=== PATIENT | male | born 1985 | race Caucasian/White ===

== ENCOUNTER 2018-04-13 15:30 | Inpatient (IN) ==
--- NOTE | 2018-04-13 16:05 | Emergency Department Note ---
Disposition Clinical Impression: Hypoxia, Dyspnea Disposition: Still a Patient Condition: Fair Referrals: NONE,PCP [Primary Care Provider] - Forms: ED Satisfaction Letter General Adult HPI - General Chief complaint: ED Shortness of Breath/Dyspnea Stated complaint: SARAH Time Seen by Provider: 04/13/18 15:40 Source: patient Limitations: no limitations Nursing Notes Reviewed: Yes Vital Signs Reviewed: Yes - History of Present Illness Pain Scale: 0 - Related Data Home Medications Medication Instructions Recorded Confirmed No Known Home Drugs 04/13/18 04/13/18 Allergies Allergy/AdvReac Type Severity Reaction Status Date / Time No Known Allergies Allergy Verified 04/13/18 15:39 Past Medical History - Past Medical History Medical history: Reports: no medical history Psychiatric history: Reports: anxiety, panic disorder, PTSD - Social History Smoking Status: Former smoker Smokeless Tobacco Status: No Alcohol use: Reports: occasionally Drug use: Reports: none Physical Exam - General Limitations: no limitations General appearance: alert Course Vital Signs O2 Sat by Pulse Oximetry 83 04/13/18 15:40 Temperature 98.7 F 04/13/18 15:49 Pulse Rate 120 04/13/18 15:49 Respiratory Rate 18 04/13/18 16:28 Blood Pressure 176/125 04/13/18 15:49 O2 Sat by Pulse Oximetry 98 04/13/18 16:28 Oxygen Delivery Oxygen Delivery Nasal Cannula Medical Decision Making - [facility] Narrative Medical decision making narrative: 1845 hrs.: They had difficulty due to his body habitus getting an IV and blood draw also worry are working on that now and will sign him out to the evening ER physician Dr. Forte for further management disposition. - Lab Data Result diagrams: 04/13/18 18:21 Lab Results 04/13/18 Range/Units 18:21 WBC 19.2 H (4.3-11.1) K/mcL RBC 5.48 (4.19-5.50) M/mcL Hgb 15.3 (12.9-16.9) g/dL Hct 46.8 (37.5-50.1) % MCV 85.4 (83.0-100.0) fL MCH 27.9 L (28.0-33.3) pg MCHC 32.7 (31.6-35.5) g/dL RDW 13.3 (11.5-14.5) % Plt Count 269 (140-400) K/mcL MPV 12.2 (9.4-12.4) fL Immature Gran % 0.5 (0-4) % Seg Neutrophils % 89.6 % Lymphocytes % 4.5 % Monocytes % 5.1 % Eosinophils % 0.1 % Basophils % 0.2 % Neutrophils # 17.2 H (1.6-8.9) K/mcL Lymphocytes # 0.9 (0.6-4.6) K/mcL Monocytes # 1.0 (0.0-1.3) K/mcL Eosinophils # 0.0 (0.0-0.6) K/mcL Basophils # 0.0 (0.0-0.2) K/mcL Attestation Statement - Attestation Attestation: This documentation is done with the assistance of Dragon dictation. Despite efforts made to ensure accuracy, there may be inaccuracies in store stock associate or spelling and typographical errors. I examined this patient and my medical decision-making was reviewed with the Resident Physician. I agree with the documented findings, disposition and treatment plan as described except to the extent set forth below. Patient seen and evaluated by Dr. Mchugh and myself, agree with his evaluation management plan, supervise care the patient's stay. Patient comes in today with increased dyspnea special exertion. He said he does any fevers here is been coughing some clear. He is a morbidly obese but has been otherwise healthy. Regular cardiac workup d-dimer as he is low risk for PE. BMP chest x-ray EKG and reassess. He is hypertensive here and was low on his saturations when he inverted back and now his sats are back up in the 90 range.
[2018-04-13] MEDS ORDERED: Ipratropium/Albuterol Neb 3 ML IH ONE (16:07)
--- NOTE | 2018-04-13 16:12 | Emergency Department Note ---
Disposition Clinical Impression: Hypoxia Disposition: Still a Patient Condition: Fair Referrals: NONE,PCP [Primary Care Provider] - Forms: ED Satisfaction Letter General Adult HPI - General Chief complaint: ED Shortness of Breath/Dyspnea Stated complaint: SARAH Time Seen by Provider: 04/13/18 15:40 Source: patient Mode of arrival: ambulatory Limitations: no limitations Nursing Notes Reviewed: Yes Vital Signs Reviewed: Yes - History of Present Illness HPI Narrative: 32-year-old male presents for evaluation of dyspnea. Patient reports she has had dyspnea over the past 1-2 months. Notes that he started with URI symptoms cough congestion. States he has had intermittent cough over the past 1-2 months. States the bleeding does have productive sputum and appears to be clear. Denies any chest pain. Denies any fevers. No abdominal pain nausea vomiting. Denies history of smoking. Denies history of snoring or obstructive sleep apnea. Patient notes his dyspnea is worse with exertion typically walking up one flight of stairs. Patient has had some lower extremity edema also noted some weight gain. 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 No family history of early heart disease. No syncope. No history of PE or DVT. No recent travel. No recent surgeries. Pain Scale: 0 - Related Data Home Medications Medication Instructions Recorded Confirmed No Known Home Drugs 04/13/18 04/13/18 Allergies Allergy/AdvReac Type Severity Reaction Status Date / Time No Known Allergies Allergy Verified 04/13/18 15:39 All systems ED: reviewed and negative except as stated. Constitutional: Denies: fever Cardiovascular: Denies: chest pain Respiratory: Reports: cough, dyspnea, sputum production Gastrointestinal: Denies: abdominal pain, nausea, vomiting Past Medical History - Past Medical History Source: patient Medical history: Reports: no medical history Psychiatric history: Reports: anxiety, panic disorder, PTSD - Social History Smoking Status: Former smoker Smokeless Tobacco Status: No Alcohol use: Reports: occasionally Drug use: Reports: none Physical Exam - General Limitations: no limitations General appearance: alert, in no apparent distress, obese - Head Head exam: atraumatic, normocephalic, normal inspection - Eye Eye exam: Present: normal appearance, PERRL, EOMI - ENT ENT exam: normal exam, mucous membranes moist - Neck Neck exam: Present: normal inspection - Chest Chest inspection: Present: normal inspection, symmetric chest wall rise - Respiratory Respiratory exam: Present: accessory muscle use, other (Diffusely diminished) - Cardiovascular Cardiovascular exam: Present: normal rhythm, tachycardia. Absent: systolic murmur - Abdominal Exam Abdominal exam: Present: soft, Non-Tender - Extremities Exam Extremities exam: Present: normal inspection, pedal edema (1-2+ pedal edema bi lateral) - Back Exam Back exam: Present: normal inspection - Neurological Exam Neurological exam: Present: alert, oriented X3, CN II-XII intact - Skin Skin exam: Present: warm, dry, intact, normal color Course Course Narrative: Patient seen and examined. Patient does have abnormal vitals including hypoxia with room air sat of 70%. Patient is Tachycardic and hypertensive. Patient's requiring 4 L nasal cannula. Patient will get extensive cardiopulmonary evaluation. Patient is deemed low risk Wells and will obtain a d-dimer. Disposition admission. - Reevaluation(s) Reevaluation #1: Patient's IV blew. Attempting second IV. Patient does have some labs in the waiting partial labs. Time: 17:28 Reevaluation #2: Patient seen and examined. Attempting lab draw. Awaiting US IV. Patient does not appear to be in any respiratory distress. Time: 18:11 Reevaluation #3: Awaiting US guided IV. Time: 18:27 Vital Signs O2 Sat by Pulse Oximetry 83 04/13/18 15:40 Temperature 98.7 F 04/13/18 15:49 Pulse Rate 120 04/13/18 15:49 Respiratory Rate 18 04/13/18 16:28 Blood Pressure 176/125 04/13/18 15:49 O2 Sat by Pulse Oximetry 98 04/13/18 16:28 Oxygen Delivery Oxygen Delivery Nasal Cannula Medical Decision Making - [facility] Narrative Medical decision making narrative: Patient seen and examined. Patient does meet SIRS criteria with tachycardia hypertension hypoxia. Patient's on 4 L nasal cannula currently. Attempted multiple times with peripheral IVs. Will try an additional ultrasound-guided IV. Patient appears to be resting comfortably. Patient does appear quite anxious. Patient will likely need extensive evaluation sepsis with CBC BMP troponin. Chest x-ray showed pleural effusion. Given the patient's degree of hypoxia patient was deemed low risk Wells however would likely better clarify the patient's pleural effusion with a CT scan with contrast. Patient will be signed out to the table games shift manager provider pending continued evaluation and disposition. - Radiology Data Radiology results reviewed: Yes I reviewed the patient's radiology results. Chest X-Ray 04/13/18 15:46 IMPRESSION: Bilateral interstitial opacities and right greater than left pleural effusions may reflect pulmonary edema. Atypical infection may be considered in the correct clinical setting. D/ / 04/13/2018 16:48:29 Marko Hobbs MD / [facility] Interpreting Provider: Marko Hobbs MD - EKG Data EKG #1 EKG attestation: Yes I reviewed and interpreted this EKG. EKG shows normal: sinus rhythm Rate: tachycardia Rhythm: NSR [place]/QRS: normal Voltage: c/w LVH When compared to previous EKG there are: previous EKG unavailable S.B.A.R. - S.B.AKirit Situation: Demographics Background: Presenting Complaint Assessment: Vital Signs, Course and respsone to treatment, Patient/Family Expectation Recommendation: Barrier(s) to disposition, Recommendation based on pending studies, treatments, or consults S.B.A.RFermin Report Given to: Dr. Daren Carpenter Repor Time: 18:56
[2018-04-13] MEDS ORDERED: Isovue-370 500 ML INFUS..BTL IV ONE (16:46)
[2018-04-13 18:57] LABS: Basophils % 0.2 %; Eosinophils % 0.1 %; Hematocrit 46.8 % (37.5-50.1); Hemoglobin 15.3 g/dL (12.9-16.9); Immature Granulocytes % 0.5 % (0-4); Lymphocytes # 0.9 K/mcL (0.6-4.6); Lymphocytes % 4.5 %; Mean Corpuscular HGB Conc 32.7 g/dL (31.6-35.5); Mean Corpuscular Hemoglobin 27.9 pg (28.0-33.3); Mean Corpuscular Volume 85.4 fL (83.0-100.0); Mean Platelet Volume 12.2 fL (9.4-12.4); Monocytes % 5.1 %; Neutrophils # 17.2 K/mcL (1.6-8.9); Platelet Count 269 K/mcL (140-400); Red Blood Count 5.48 M/mcL (4.19-5.50); Red Cell Distribution Width 13.3 % (11.5-14.5); Segmented Neutrophils % 89.6 %
[2018-04-13 19:23] LABS: BUN/Creatinine Ratio 10 (6-26); Blood Urea Nitrogen 9 mg/dL (6-20); Calcium 9.6 mg/dL (8.6-10.3); Carbon Dioxide 22 mEq/L (23-29); Chloride 102 mEq/L (98-107); Glucose 173 mg/dL (70-105); Osmolality,Calculated 291 (280-300); Potassium 3.5 mEq/L (3.5-5.1); Sodium 139 mEq/L (136-145); eGFR For Non-African Americans > 60 (> 60)
--- NOTE | 2018-04-13 19:27 | Emergency Department Note ---
Disposition Clinical Impression: Hypoxia, Pleural effusion, Elevated troponin Dyspnea Qualifiers: Dyspnea type: shortness of breath Qualified Code(s): R06.02 - Shortness of breath CHF (congestive heart failure) Qualifiers: Heart failure type: systolic Heart failure chronicity: acute Qualified Code(s): I50.21 - Acute systolic (congestive) heart failure Disposition: Admitted As Inpatient Condition: Undetermined Time of Disposition: 21:09 SOB HPI - General Chief Complaint: ED Shortness of Breath/Dyspnea Stated Complaint: SARAH Time Seen by Provider: 04/13/18 15:40 Source: patient Mode of arrival: ambulatory Limitations: no limitations Nursing Notes Reviewed: Yes Vital Signs Reviewed: Yes - History of Present Illness Patient sign out from resident physician and a team. Briefly this is a 32-year-old male with no previous medical history arrives to the emergency department with complaint of shortness of breath. The patient states is been ongoing and progressively worsening over the course the past 2 months. He a ssociated cough, congestion. Patient is complaining of bilateral lower extremity leg swelling. He denies any fevers, chills, abdominal pain. Denies any associated chest pain as well. Patient is afebrile. Apparently the patient was ambulatory around the room upon arrival to the emergency department he was noted to be hypoxic in the low 70s. This was on room air. He is quickly placed on 4 L nasal cannula and is resting in the mid 90s to 2 at this time. In addition the patient has had a delay of care secondary to IV access. Labs were obtained but IV access was obtained upon sign out at shift change. - Related Data Home Medications Medication Instructions Recorded Confirmed No Known Home Drugs 04/13/18 04/13/18 Allergies Allergy/AdvReac Type Severity Reaction Status Date / Time No Known Allergies Allergy Verified 04/13/18 15:39 All systems ED: reviewed and negative except as stated. Constitutional: Denies: fever ENT ED: Denies: ear pain, throat pain Cardiovascular: Denies: chest pain Respiratory: Reports: cough, dyspnea, sputum production Gastrointestinal: Denies: abdominal pain, nausea, vomiting Musculoskeletal: Denies: back pain Integumentary: Denies: rash Neurological: Reports: weakness. Denies: headache, numbness, paresthesias, confusion Past Medical History - Past Medical History Attestation: Yes The following information was validated with the patient. Source: patient, old records reviewed Medical history: Reports: no medical history Surgical history: Reports: non-contributory Psychiatric history: Reports: anxiety, panic disorder, PTSD - Social History Smoking Status: Former smoker Smokeless Tobacco Status: No Alcohol use: Reports: occasionally Drug use: Reports: none Physical Exam - General Limitations: no limitations General appearance: alert, in no apparent distress - Head Head exam: atraumatic, normocephalic, normal inspection - Eye Eye exam: Present: normal appearance, PERRL, EOMI - ENT ENT exam: normal exam, normal oropharynx, mucous membranes moist - Neck Neck exam: Present: normal inspection, full ROM, trachea midline - Chest Chest inspection: Present: normal inspection, symmetric chest wall rise - Respiratory Respiratory exam: Present: other (Rales noted in bibasilar region). Absent: respiratory distress, wheezes - Cardiovascular Cardiovascular exam: Present: regular rate, normal rhythm, normal heart sounds - Abdominal Exam Abdominal exam: Present: soft, Non-Tender. Absent: tenderness - Extremities Exam Extremities exam: Present: full ROM, pedal edema (2+ pitting). Absent: tenderness - Neurological Exam Neurological exam: Present: alert, oriented X3 - Skin Skin exam: Present: warm, dry, intact, normal color Course - Reevaluation(s) Reevaluation #1: Physician notified her regarding elevated troponin and his critical 0.07. The patient was given 325 aspirin at this time. In addition the patient was noted to have elevated high blood pressure 211 systolic. Given the patient's finds consistent with CHF with bilateral lower lobe pleural effusions, elevated blood pressure and elevated troponin, combined, we will administer nitroglycerin for the patient. This will be determined if it passes with the patient's dyspnea. We are tempting to lower preload as the patient definitively has bilateral lower lobe pleural effusions. The patient is on 4 L nasal cannula at this time. He is in no respiratory distress. He adamantly denies any chest pain at this time. EKG demonstrates sinus tachycardia. No ST elevation but there is mild ST depression noted in 2, 3, aVF, V4, V5. Time: 19:41 - Consultations Consultation #1: I spoke with Dr. Sifuentes and cardiology who recommended starting the patient on labetalol, Aldactone and treat as a hypertensive emergency until Echo can be performed. The fish farm manager recommended 160/90 overnight. Time: 21:04 Vital Signs O2 Sat by Pulse Oximetry 83 04/13/18 15:40 Temperature 98.7 F 04/13/18 15:49 Pulse Rate 118 04/13/18 20:50 Respiratory Rate 22 04/13/18 20:50 Blood Pressure 206/117 04/13/18 20:50 O2 Sat by Pulse Oximetry 93 04/13/18 20:50 Oxygen Delivery Oxygen Delivery Nasal Cannula Shortness of Breath/Dyspnea - MDM Narrative Medical decision making narrative: Patient work-up in the ED demonstrates bilateral pleural effusions, elevated troponin, elevated BNP. The patient's O2 saturations remains above 92% on 5 L NC O2. The patient was given ASA 325 mg, nitroglycerin to reduce preload. I spoke with Cardiology who recommended both preload and afterload reduction with spironolactone and beta arline. He recommended a systolic blood pressure down to 170-160 overnight. He said to treat as a hypertensive emergency and the patient receive an echocardiogram. Patient also received cefepime here in the emergency department as the read was concern for possible infectious etiology. The patient remains afebrile. He is resting comfortably in the room at this time but is borderline anxious and when he becomes anxious because mildly tachypneic. We will avoid BiPAP at this time. The patient will be admitted to the hospital, accepted by Dr. Schultz. - Lab Data Lab results reviewed: Yes I reviewed the patient's lab results. Result diagrams: 04/13/18 18:21 04/13/18 18:21 Lab Results 04/13/18 04/13/18 04/13/18 Range/Units 18:21 18:21 18:21 WBC 19.2 H (4.3-11.1) K/mcL RBC 5.48 (4.19-5.50) M/mcL Hgb 15.3 (12.9-16.9) g/dL Hct 46.8 (37.5-50.1) % MCV 85.4 (83.0-100.0) fL MCH 27.9 L (28.0-33.3) pg MCHC 32.7 (31.6-35.5) g/dL RDW 13.3 (11.5-14.5) % Plt Count 269 (140-400) K/mcL MPV 12.2 (9.4-12.4) fL Immature Gran % 0.5 (0-4) % Seg Neutrophils % 89.6 % Lymphocytes % 4.5 % Monocytes % 5.1 % Eosinophils % 0.1 % Basophils % 0.2 % Neutrophils # 17.2 H (1.6-8.9) K/mcL Lymphocytes # 0.9 (0.6-4.6) K/mcL Monocytes # 1.0 (0.0-1.3) K/mcL Eosinophils # 0.0 (0.0-0.6) K/mcL Basophils # 0.0 (0.0-0.2) K/mcL D-Dimer 1127 H (0-500) ng/mLFEU Sodium 139 (136-145) mEq/L Potassium 3.5 (3.5-5.1) mEq/L Chloride 102 (98-107) mEq/L Carbon Dioxide 22 L (23-29) mEq/L BUN 9 (6-20) mg/dL Creatinine 0.86 (0.70-1.30) mg/dL Est GFR ( Amer) > 60 (> 60) Est GFR (Non-Af Amer) > 60 (> 60) BUN/Creatinine Ratio 10 (6-26) Glucose 173 H (70-105) mg/dL Calculated Osmolality 291 (280-300) Lactic Acid (0.5-2.2) mmol/L Calcium 9.6 (8.6-10.3) mg/dL Troponin I 0.07 H* (< 0.04) ng/mL B-Natriuretic Peptide (Less than 100) pg/mL 04/13/18 04/13/18 Range/Units 18:21 19:18 WBC (4.3-11.1) K/mcL RBC (4.19-5.50) M/mcL Hgb (12.9-16.9) g/dL Hct (37.5-50.1) % MCV (83.0-100.0) fL MCH (28.0-33.3) pg MCHC (31.6-35.5) g/dL RDW (11.5-14.5) % Plt Count (140-400) K/mcL MPV (9.4-12.4) fL Immature Gran % (0-4) % Seg Neutrophils % % Lymphocytes % % Monocytes % % Eosinophils % % Basophils % % Neutrophils # (1.6-8.9) K/mcL Lymphocytes # (0.6-4.6) K/mcL Monocytes # (0.0-1.3) K/mcL Eosinophils # (0.0-0.6) K/mcL Basophils # (0.0-0.2) K/mcL D-Dimer (0-500) ng/mLFEU Sodium (136-145) mEq/L Potassium (3.5-5.1) mEq/L Chloride (98-107) mEq/L Carbon Dioxide (23-29) mEq/L BUN (6-20) mg/dL Creatinine (0.70-1.30) mg/dL Est GFR ( Amer) (> 60) Est GFR (Non-Af Amer) (> 60) BUN/Creatinine Ratio (6-26) Glucose (70-105) mg/dL Calculated Osmolality (280-300) Lactic Acid 1.7 (0.5-2.2) mmol/L Calcium (8.6-10.3) mg/dL Troponin I (< 0.04) ng/mL B-Natriuretic Peptide 303 H (Less than 100) pg/mL - Radiology Data Radiology results reviewed: Yes I reviewed the patient's radiology results. Chest X-Ray 04/13/18 15:46 IMPRESSION: Bilateral interstitial opacities and right greater than left pleural effusions may reflect pulmonary edema. Atypical infection may be considered in the correct clinical setting. D/ / 04/13/2018 16:48:29 Marko Hobbs MD / [facility] Interpreting Provider: Marko Hobbs MD Chest CTA 04/13/18 16:46 IMPRESSION: Within the limitations of the exam no definite evidence for pulmonary embolism is identified as above. [id number] right pleural effusion and small left pleural effusion. Areas of consolidation and ground-glass opacity bilaterally in predominantly perihilar distribution which may be on the basis of multifocal infectious or inflammatory infiltrates, atelectasis and/or pulmonary edema. Clinical correlation and continued follow-up recommended. Cardiomegaly. D/ / 04/13/2018 20:36:01 Jacob Malloy MD / [facility] Interpreting Provider: Jacob Malloy MD - EKG Data EKG attestation: Yes I reviewed and interpreted this EKG. EKG results narrative: Heart rate 117. There is ST depression in inferior and lateral leads. No ST elevation. Tachycardia noted as well. No old EKG. Attestation Statement - Attestation Attestation: Resident Attestation: I examined this patient and my medical decision making was reviewed with the Resident Physician. I agree with the documented findings, disposition and treatment plan as described except to the extent set forth below. We independently had [id number] contact with the patient. Patient taken over at sign out from Dr. Yancey. Patient presenting for evaluation of dyspnea. Patient with concern for possible CHF as he has a right- sided pleural effusion. Care delayed secondary to difficult IV access. Patient awaiting further evaluation with blood work as well as CTA. Of note patient did arrive with hypertension 174/112. Patient was adamant about walking himself to the room and was found to have a pulse ox of 73% with exertion. Evaluation within the emergency department shows a patient in no significant respiratory distress but he is on 5 L nasal cannula to keep his oxygen 96%. The patient is able to talk in full sentences without conversational dyspnea. He does have +2 pitting edema throughout both legs up to the knee. The patient denies any chest pain. He states that he keeps putting his symptoms off as stress. He did have viral syndrome approximately 1-2 weeks ago with runny nose and mild sinusitis symptoms. Patient has no elevated troponin with associated EKG changes. Cardiology was consulted in regards to concern for CHF exacerbation as well as possible myocarditis. The patient did have an elevated white count and was started on cefepime secondary to concern for possibly underlying infectious etiology to the pleural effusion versus pneumonia. Patient was signed out to both Dr. Chavez is well as Dr. Schultz.
[2018-04-13 19:39] LABS: Troponin I 0.07 ng/mL (< 0.04)
[2018-04-13] MEDS ORDERED: Aspirin 325 MG TABLET PO ONE (19:40)
[2018-04-13] MEDS ORDERED: Cefepime HCl 1,000 MG in Water for inj. (sterile) 20 ML 10 ML IVP STA (20:41)
[2018-04-13] MEDS ORDERED: 0.9 % Sodium Chloride 500 ML IVC ONE (20:42)
[2018-04-13] MEDS: Nitroglycerin 0.4 MG TAB.SUBL SL PRN ×3 (20:42→20:46)
[2018-04-13] MEDS ORDERED: Furosemide 40 MG/4 ML VIAL IVP ONE (20:54)
[2018-04-13] MEDS ORDERED: *HR* Labetalol 20 MG/4 ML SYRINGE IVP PRN (20:58)
[2018-04-13] MEDS ORDERED: Spironolactone 25 MG TABLET PO STA (21:00)
--- NOTE | 2018-04-13 23:22 | Internal Med History&Physical ---
Date of Encounter: 04/14/18 Time of Encounter: 23:22 Internal Medicine - H&P: HPI Chief complaint: SOB Admitted From: Emergency Dept Plans for Post Hospital Care: Home History of present illness: Mr. Suárez is a 32 year old male with past medical history of anxiety, morbid obesity presents to emergency department with shortness of breath 2 months. Patient states the shortness of breath is worsened with exertion as well as high stress events. He states that his symptoms have been progressively worsening throughout this time period. Denies previous history of pulmonary or cardiac disease or symptoms similar to this. He does admit to recent sinus illness approximately 3 months ago which she states has never fully gone away. Denies any symptoms of fevers, chills, nausea, vomiting, chest pains but does admit to symptoms of nonproductive cough, orthopnea, lower extremity swelling, PND. 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 He takes no home medications and has taken nothing [id number]. He lives by himself in a house which is relatively old and does not have any pets. He is a former smoker having quit ap proximately 10 years ago. Previously smoked cigarettes approximately one pack per day for 5 years. Denies any family history of heart or lung disease. He denies ever being assessed for sleep apnea or obesity hypoventilation syndrome. He does not have a primary care physician Upon arrival to the emergency room, vital signs are significant for heart rate of 120, respiratory rate 28, blood pressure 176/125 he was tolerating 96% oxygen on 4 L of nasal cannula. He was noted to be saturating oxygen in the 80s on room air on arrival. Laboratory results were significant for a WBC of 19.2 with neutrophil predominance, d-dimer was elevated at 1127, carbonate was mildly low at 22, glucose 173, troponin mildly elevated at 0.07 and BNP of 303. EKG showed sinus rhythm with no evidence of ST changes. Chest x-ray was obtained showed bilateral interstitial opacities right greater than left pleural effusions may reflect pulmonary edema. Also considerations atypical infection. CTA was also obtained due to elevated d-dimer and showed no pulmonary embolism, moderate to large right pleural effusion and small left pleural effusion, areas of consolidation and groundglass opacities bilaterally predominantly in the perihilar distribution as well as cardiomegaly. No evidence of pericardial effu roddy. Past medical history as above Past surgical history: Patient denies Social history: Former smoker as above, alcohol use of 8-10 drinks per week, denies ever drug use Family history: Noncontributory Past Med Surg Social Fam HX - Past Medical History Medical history: no medical history Psychiatric history: anxiety, panic disorder, PTSD - Past Surgical History Surgical History: non-contributory - Social History Smoking Status: Former smoker Smokeless Tobacco Status: No Alcohol use: occasionally Drug use: none Internal Medicine - H&P: Meds No Known Home Drugs 04/13/18 [History] Allergy/AdvReac Type Severity Reaction Status Date / Time No Known Allergies Allergy Verified 04/13/18 15:39 All Systems PM: A 10-system review of systems was performed and is negative for pertinent findings except as documented above in the HPI. Review of systems: - Admits to fatigue. Constitutional: Denies fevers, chills, weight loss - Head/Neck: Denies WALLER, neck stiffness - EENT: Admits to sinus pressure, postnasal drip. Denies vision changes/blurriness, rhinorrhea, congestion, sore throat, odynaphagia - CVS: Admits to dyspnea on exertion, orthopnea, edema, PND. Denies chest pain, palpitations - Pulm: Admits to shortness breath, nonproductive cough. Denies sputum, hematemesis, wheezing - GI: Denies abdominal pain, anorexia, nausea, vomiting, diarrhea, constipation, melena - : Denies dysuria, increased frequency, urgency, hematuria, change in urine color - MSK: Denies joint pain, limited ROM - Skin: Denies rashes, ulcers, color changes, - Neuro: Denies WALLER, paresthesias, focal deficits, ataxia, - Constitutional Vitals: Temp Pulse Resp BP Pulse Ox 97.7 F 115 22 168/98 89 04/13/18 22:53 04/13/18 22:53 04/13/18 22:59 04/13/18 22:59 04/13/18 22:53 Exam: Gen.: Vitals noted. No acute distress. AAOx3, resting comfortably in bed. Mildly obese HEENT: PERRL/EOMI, oropharynx clear, Normocephalic, atraumatic, MMM Neck: Supple. No adenopathy Cardiac: RRR, tachycardic, no murmur, +S1/S2, 2+ BLE pitting edema. No JVD ap preciated Pulmonary: Difficult to auscultate due to body habitus however possibly decreased lung sounds in bases. equal chest expansion, unlabored breathing Abdomen: soft, nontender, BS noted, no guarding, no palpable HSM Skin: warm and dry, no visible lesions. MSK: ROM assessed, no joint swelling noted, no gait abnormalities. Non tender calf or clubbing Neuro: A&Ox3, moves all extremities, no focal deficits Psych: Appropriate mood and behavior, AOx3 Internal Med - H&P Results - Labs CBC & Chem 7: 04/13/18 18:21 04/13/18 18:21 Labs: Short CBC 04/13/18 Range/Units 18:21 WBC 19.2 H (4.3-11.1) K/mcL Hgb 15.3 (12.9-16.9) g/dL Hct 46.8 (37.5-50.1) % Plt Count 269 (140-400) K/mcL Neutrophils # 17.2 H (1.6-8.9) K/mcL BMP 04/13/18 18:21 Sodium 139 Potassium 3.5 Chloride 102 Carbon Dioxide 22 L BUN 9 Creatinine 0.86 Glucose 173 H Calcium 9.6 Cardiac Enzymes 04/13/18 Range/Units 18:21 Troponin I 0.07 H* (< 0.04) ng/mL - Impressions ITS Impressions Chest X-Ray 04/13/18 15:46 IMPRESSION: Bilateral interstitial opacities and right greater than left pleural effusions may reflect pulmonary edema. Atypical infection may be considered in the correct clinical setting. D/ / 04/13/2018 16:48:29 Marko Hobbs MD / [facility] Interpreting Provider: Marko Hobbs MD Chest CTA 04/13/18 16:46 IMPRESSION: Within the limitations of the exam no definite evidence for pulmonary embolism is identified as above. [id number] right pleural effusion and small left pleural effusion. Areas of consolidation and ground-glass opacity bilaterally in predominantly perihilar distribution which may be on the basis of multifocal infectious or inflammatory infiltrates, atelectasis and/or pulmonary edema. Clinical correlation and continued follow-up recommended. Cardiomegaly. D/ / 04/13/2018 20:36:01 Jacob Malloy MD / [facility] Interpreting Provider: Jacob Malloy MD - Assessment and plan (1) Acute respiratory failure Current Visit: Yes Status: Acute Assessment and plan: - Suspected etiology of pulmonary edema with probably OHS/SAL component - No reported history of CHF, recent illness reported and mycocarditis is in the differential - Leukocytosis, tachypnea, tachycardia present, also consider infectious etiolo gy - Also suspect some component of anxiety however desaturations noted upon exertion - WBC of 19, RR 28, HR 110s. Lactic acid 1.7 - CXR shows bilateral interstitial opacities and bilateral pleural effusions. Pulmonary edema likely with possible atypical infection - CTA also obtained an EGD due to elevated d-dimer. Shows bilateral pleural effusions, no PE, bilateral groundglass opacities as well as cardiomegaly - Currently tolerating 5 L of oxygen via nasal cannula - Clinical symptoms orthopnea, PND, nonproductive cough suggest pulmonary edema is most likely. Denies any fevers, purulent sputum Plan - Cardiology contacted in emergency department, recommended spironolactone and labetalol - Cardiology consult placed - Continue IV diuresis with 40 lasix BID - Fluid restrict, Strict I/Os - Echo ordered and pending - Will start rocephin and azithromycin to cover for atypical PNA Qualifiers: Respiratory failure complication: hypoxia Qualified Code(s): J96.01 - Acute respiratory failure with hypoxia (2) Hypertensive emergency Current Visit: Yes Status: Acute Assessment and plan: - Blood pressures are as high as 200s/120s on admission Cardiology contacted emergency department Continue labetalol drip, spironolactone Patient is asymptomatic but does have evidence of end organ evidence of elevated troponin No previous history of hypertension however he does not see a physician (3) Morbid obesity Current Visit: Yes Status: Chronic Assessment and plan: - Advised weight loss as outpatient (4) Pleural effusion Current Visit: Yes Status: Acute Assessment and plan: As above for acute respiratory failure (5) Elevated troponin Current Visit: Yes Status: Acute Assessment and plan: Troponin 0.07 trended to 0.09 no chest pain EKG reviewed Likely secondary to demand ischemia in the setting of hypertensive emergency, hypoxia We will trend (6) CHF (congestive heart failure) Current Visit: Yes Status: Suspected Assessment and plan: - Suspected as above. - Possible related to myocarditis - diuresis, cardio consult - echo pending Qualifiers: Heart failure type: unspecified Heart failure chronicity: acute Qualified Code(s): I50.9 - Heart failure, unspecified (7) Anxiety Current Visit: Yes Status: Acute Assessment and plan: start hydroxyzine with PRN ativan (8) DVT prophylaxis Current Visit: Yes Status: Acute Assessment and plan: heparin 5000 units q8 hours - Time Spent With Patient Total time spent is greater than 50% in coordination of care (as documented) at patient's floor/unit and/or counseling patient:
[2018-04-13] MEDS ORDERED: Acetaminophen 325 MG TABLET PO PRN (23:23)
[2018-04-13] MEDS ORDERED: Naloxone 0.4 MG/ML INJ IVP PRN (23:23)
[2018-04-13] MEDS ORDERED: *HR* LORazepam 2 MG/ML VIAL IVP PRN (23:28)
[2018-04-14] MEDS: Labetalol 200 MG in D5% in Water 250 ML IVC SCH ×2 (00:09→10:57)
[2018-04-14] MEDS: Azithromycin 500 MG in D5% in Water 250 ML IVPB SCH ×2 (00:11→23:17)
[2018-04-14 01:14] LABS: Bilirubin,Urine Negative (Negative); Blood,Urine Negative (Negative); Clarity,Urine Clear (Clear); Color,Urine Yellow (Yellow); Glucose,Urine (UA) Normal (Normal); Ketones,Urine Negative (Negative); Leukocyte Esterase,Urine Small (Negative); Nitrite,Urine Negative (Negative); Protein,Urine 30 mg/dL (Neg-Trace); Specific Gravity,Urine 1.009 (1.010-1.025); Urobilinogen,Urine Normal (Normal)
[2018-04-14 01:16] LABS: Bacteria,Urine None Seen per hpf (None-Few); Hyaline Casts,Urine None Seen per lpf (None-Few); RBC,Urine 0-3 per hpf (0-3); Squamous Epithelial Cell,Urine Many per lpf (None-Few)
[2018-04-14 02:45] LABS: Adenovirus Not Detected (Not Detect); Bordetella Pertussis Not Detected (Not Detect); Chlamydophila pneumoniae Not Detected (Not Detect); Coronavirus 229E Not Detected (Not Detect); Coronavirus HKU1 Not Detected (Not Detect); Coronavirus NL63 Not Detected (Not Detect); Coronavirus OC43 Not Detected (Not Detect); Human Metapneumovirus Not Detected (Not Detect); Human Rhinovirus/Enterovirus Not Detected (Not Detect); Influenza A Subtype 2009 H1 Not Detected (Not Detect); Influenza A Untypeable Not Detected (Not Detect); Influenza B Not Detected (Not Detect); Mycoplasma pneumoniae Not Detected (Not Detect); Parainfluenza Virus 1 Not Detected (Not Detect); Parainfluenza Virus 2 Not Detected (Not Detect); Parainfluenza Virus 3 Not Detected (Not Detect); Parainfluenza Virus 4 Not Detected (Not Detect); Respiratory Syncytial Virus Not Detected (Not Detect)
[2018-04-14] MEDS: *HR* Heparin 5,000 UNIT/ML VIAL SQ SCH ×3 (05:30→21:27)
[2018-04-14] MEDS ORDERED: *HR* Heparin 5,000 UNIT/ML VIAL SQ SCH (06:00)
[2018-04-14 06:32] LABS: Basophils % 0.2 %; Eosinophils % 0.2 %; Hematocrit 41.5 % (37.5-50.1); Hemoglobin 13.8 g/dL (12.9-16.9); Immature Granulocytes % 0.6 % (0-4); Lymphocytes # 1.1 K/mcL (0.6-4.6); Lymphocytes % 6.4 %; Mean Corpuscular HGB Conc 33.3 g/dL (31.6-35.5); Mean Corpuscular Hemoglobin 28.2 pg (28.0-33.3); Mean Corpuscular Volume 84.7 fL (83.0-100.0); Mean Platelet Volume 11.9 fL (9.4-12.4); Monocytes # 1.3 K/mcL (0.0-1.3); Monocytes % 7.2 %; Neutrophils # 15.3 K/mcL (1.6-8.9); Nucleated Red Blood Cells 0.1 /100 WBC (0); Platelet Count 265 K/mcL (140-400); Red Cell Distribution Width 13.4 % (11.5-14.5); Segmented Neutrophils % 85.4 %
[2018-04-14] MEDS ORDERED: Perflutren Lipid Microsphere 1.3 ML in 0.9 % Sodium Chloride 8.7 ML IVP ONE (07:27)
[2018-04-14 08:21] LABS: BUN/Creatinine Ratio 13 (6-26); Blood Urea Nitrogen 10 mg/dL (6-20); Calcium 8.7 mg/dL (8.6-10.3); Carbon Dioxide 27 mEq/L (23-29); Chloride 105 mEq/L (98-107); Chol/HDL Ratio 2.6 (0-4.9); Cholesterol 94 mg/dL (< 200); Glucose 164 mg/dL (70-105); HDL Cholesterol 36 mg/dL (40-59); LDL Cholesterol,Calculated 45 mg/dL (0-99); Magnesium 2.2 mg/dL (1.6-2.6); Osmolality,Calculated 295 (280-300); Potassium 4.2 mEq/L (3.5-5.1); Sodium 141 mEq/L (136-145); Triglycerides 66 mg/dL (< 150); eGFR For Non-African Americans > 60 (> 60)
[2018-04-14] MEDS: Spironolactone 25 MG TABLET PO SCH (08:32)
[2018-04-14] MEDS: cefTRIAXone 1,000 MG in Water for inj. (sterile) 20 ML 10 ML IVP SCH (08:32)
[2018-04-14] MEDS: Furosemide 40 MG/4 ML VIAL IVP SCH ×2 (08:33→16:53)
--- NOTE | 2018-04-14 11:16 | Cardiology Consult Note ---
Date of Encounter: 04/14/18 Time of Encounter: 10:04 Assessment and Plan (1) Hypertensive emergency Current Visit: Yes Status: Acute suspected secondary HTN - check renin activity, 24hr urine cortisol, saliva cortisol, metanephrine - start coreg 12.5 bid, lisinopril 10, aldactone 25 - taper off labetalol drip with uptitration po meds goal BP now 140/90 (2) CHF (congestive heart failure) Current Visit: Yes Status: Suspected HFrEF, ADHF, EF likley moderately decreased pending LV contrast for EF, etiology unclear, ddx HTN, viral, idiopathic, etc, moderate hypervolemia - pending LV contrast for EF - pending decision on ischemia w/u - lasix iv goal I/O neg 1.5 L/d, till Bun/Cr uptrending - start coreg 12.5 bid and lisinopril 10 with with uptitration - aldactone 25 after blood draw for renin activity - keep K>4, Mg>2 - Na 2g/d, fluid restriction 1.5L/d - strict I/O, daily standing weight - nocturnal pulse oximetry - outpatient PSG - Qualifiers: Heart failure type: systolic Heart failure chronicity: acute on chronic Qualified Code(s): I50.23 - Acute on chronic systolic (congestive) heart failure (3) Elevated troponin Current Visit: Yes Status: Acute likely myocardial injury due to ADHF (4) Morbid obesity Current Visit: Yes Status: Chronic need PSG outpatient Discussion w patient/family: The assessment and plan as outlined above was discussed with the patient and/or family members who expressed understanding and agreement. All questions were answered. Thank you for involving us in the care of your patient. Please call with any questions. History of Present Illness Consult date: 04/14/18 Requesting physician: Dereck Thakkar Consult reason: CASTRO, HTN Chief complaint: CASTRO History of present illness: Mr. Suárez is a 32 year old male ho morbid obesity. C/o CASTRO, edema. Insidious onset of progressive CASTRO 2 months and LE edema preceded by URI 3 months ago. ET down from walking blocks to 200 feet, no PND/orthopnea. No chest pain, palpitation, syncope, dizziness ED BP peak 210s/120s, currently 140/90s-100s on labetalol, aldactone. No FH SCD, CMP. Denied drug/EtOH ECG S tachy, possible LVH, TWI ant-lateral. Tele HR 60s-70s, no events Trop 0.1 flat, BNP 300 DD 1k CTA no PE,+ pleural effusion, WBC19, no GINGER, K 3.5- 4 [id number] TTE LVEF unable to assess accurately, grossly 40-45%. Moderate global left ventricular systolic dysfunction. Mildly dilated left ventricle. Moderate concentric left ventricular hypertrophy. Moderate left ventricular diastolic dysfunction. Mildly dilated left atrium. RV not well seen, grossly normal right ventricular size with mild hypokinesis. No significant valvular dysfunction. Unable to estimate RVSP due to lack of TR jet. Recommend repeat limited echo with definity. Past Med Surg Social Fam HX - Past Medical History Medical history: no medical history Psychiatric history: anxiety, panic disorder, PTSD - Past Surgical History Surgical History: non-contributory - Social History Smoking Status: Former smoker Smokeless Tobacco Status: No Alcohol use: occasionally Drug use: none Medications and Allergies No Known Home Drugs 04/13/18 [History] Allergy/AdvReac Type Severity Reaction Status Date / Time No Known Allergies Allergy Verified 04/13/18 15:39 All Systems Review: The remainder of the systems were reviewed and are negative - Constitutional Constitutional: fatigue - Cardiovascular Cardiovascular: as per HPI - Respiratory Respiratory: cough, dyspnea - Psychiatric Psychiatric: anxiety - Hematological/Lymphatic Hematologic/Lymphatic: no easy bleeding Physical Examination Vital Signs, Last 4 Hours Temp Pulse Resp BP Pulse Ox 04/14/18 10:30 73 23 141/94 94 04/14/18 09:30 70 24 148/105 92 04/14/18 08:30 69 24 164/109 92 04/14/18 08:00 97.9 F 04/14/18 07:30 64 22 145/95 97 Other: General: NAD, AAO, cogent, obese HEENT: anicteric Neck: JVP unable to assess due to body habitus, no bruits Chest: CTA B/L, no W/R/C Heart: RRR, S1/S2, no S3/S4, no M/G/R Abdominal: BS +, soft, ND, NT Peripheral Pulses: radial pulse 2+ B/L, DP vague due to LE edema Skin/Extremities: no cyanosis, B/L 2+ LE edema to high shins Neurological: grossly non-focal. Results 04/14/18 06:22 04/14/18 07:47 Lab Results 04/13/18 04/13/18 04/13/18 18:21 18:21 18:21 WBC 19.2 H Hgb 15.3 Hct 46.8 Plt Count 269 D-Dimer 1127 H Sodium 139 Potassium 3.5 Chloride 102 Carbon Dioxide 22 L BUN 9 Creatinine 0.86 Glucose 173 H Calcium 9.6 Magnesium Troponin I 0.07 H* B-Natriuretic Peptide 04/13/18 04/14/18 04/14/18 18:21 00:08 06:22 WBC Hgb Hct Plt Count D-Dimer Sodium Potassium Chloride Carbon Dioxide BUN Creatinine Glucose Calcium Magnesium Troponin I 0.09 H* 0.08 H* B-Natriuretic Peptide 303 H 04/14/18 04/14/18 06:22 07:47 WBC 17.9 H Hgb 13.8 D Hct 41.5 Plt Count 265 D-Dimer Sodium 141 Potassium 4.2 Chloride 105 Carbon Dioxide 27 BUN 10 Creatinine 0.79 Glucose 164 H Calcium 8.7 Magnesium 2.2 Troponin I B-Natriuretic Peptide - Imaging and Cardiology Chest Xray: report reviewed Echo: report reviewed, image reviewed Other Results: Tele reviewed - EKG Interpretation EKG results cardiology: personally reviewed Consult Discharge Plan - Plan Referrals: NONE,PCP [Primary Care Provider] -
--- NOTE | 2018-04-14 17:03 | Event Note ---
Date of Encounter: 04/14/18 Time of Encounter: 17:02 Patient is feeling somewhat better today. Sitting up in chair. Has had good urine output. The pressure is slowly improving. Echocardiogram did show EF of 40-45% with global left ventricular systolic and diastolic dysfunction. Cardiology consult appreciated. Plan for ischemic workup. Titrate off labetalol. Started on oral medications for blood pressure including carvedilol, lisinopril and spironolactone. Etiology of cardiomyopathy uncertain. Troponins are adynamic. We will follow renal function closely.
[2018-04-15 04:27] LABS: Basophils # 0.1 K/mcL (0.0-0.2); Basophils % 0.6 %; Eosinophils # 0.3 K/mcL (0.0-0.6); Eosinophils % 2.2 %; Hematocrit 40.6 % (37.5-50.1); Hemoglobin 12.9 g/dL (12.9-16.9); Immature Granulocytes % 0.6 % (0-4); Lymphocytes % 12.7 %; Mean Corpuscular HGB Conc 31.8 g/dL (31.6-35.5); Mean Corpuscular Hemoglobin 27.7 pg (28.0-33.3); Mean Corpuscular Volume 87.3 fL (83.0-100.0); Mean Platelet Volume 12.3 fL (9.4-12.4); Monocytes # 1.5 K/mcL (0.0-1.3); Monocytes % 9.7 %; Neutrophils # 11.7 K/mcL (1.6-8.9); Platelet Count 233 K/mcL (140-400); Red Blood Count 4.65 M/mcL (4.19-5.50); Red Cell Distribution Width 13.6 % (11.5-14.5); Segmented Neutrophils % 74.2 %
[2018-04-15 04:56] LABS: BUN/Creatinine Ratio 15 (6-26); Blood Urea Nitrogen 12 mg/dL (6-20); Calcium 8.7 mg/dL (8.6-10.3); Carbon Dioxide 29 mEq/L (23-29); Chloride 105 mEq/L (98-107); Glucose 115 mg/dL (70-105); Osmolality,Calculated 293 (280-300); Potassium 3.8 mEq/L (3.5-5.1); Sodium 141 mEq/L (136-145); eGFR For Non-African Americans > 60 (> 60)
[2018-04-15] MEDS: *HR* Heparin 5,000 UNIT/ML VIAL SQ SCH ×2 (05:49→15:34)
[2018-04-15] MEDS: Spironolactone 25 MG TABLET PO SCH (08:12)
[2018-04-15] MEDS: cefTRIAXone 1,000 MG in Water for inj. (sterile) 20 ML 10 ML IVP SCH (08:13)
[2018-04-15] MEDS: Furosemide 40 MG/4 ML VIAL IVP SCH ×2 (08:13→17:30)
[2018-04-15 09:11] LABS: Estimated Average Glucose 111 mg/dl; Hemoglobin A1C 5.5 %
[2018-04-15] MEDS ORDERED: Perflutren Lipid Microsphere 1.3 ML in 0.9 % Sodium Chloride 8.7 ML IVP ONE ×2 (11:39→14:51)
--- NOTE | 2018-04-15 14:09 | Internal Med Progress Note ---
Hospitalist Progress Note - Encounter Date of Encounter: 04/15/18 Time of Encounter: 13:59 - Subjective Interval History: Patient sitting up in chair. Feels better. Continues to have lower extremity edema and exertional dyspnea. Denies any chest pain. No palpitations. - Exam Vitals: Temp Pulse Resp BP Pulse Ox 97.7 F 59 23 154/89 97 04/15/18 08:00 04/15/18 11:50 04/15/18 11:50 04/15/18 11:50 04/15/18 11:50 Exam: General: Patient is alert, mild distress, oriented x 3, morbidly obese Respiratory: Good respiratory effort. Normal breath sounds. No wheezing or crackles. Cardiovascular: Regular rate and rhythm. s1 and s2 normal No clicks, rubs, gallops, or murmurs. Bilateral pitting pedal edema Abdomen: Abdomen is soft, nontender. Bowel sounds are present Musculoskeletal: Spontaneously moving all extremities Skin: warm, dry, intact. Neuro: Alert oriented x 3 normal cranial nerves, no focal deficits - Assessment and Plan (1) Acute respiratory failure Current Visit: Yes Status: Acute Assessment and Plan: Due to congestive heart failure. Continue treating CHF. Patient most likely also has obstructive sleep apnea and would need outpatient sleep study after discharge. Wean FiO2 as tolerated. (2) Elevated troponin Current Visit: Yes Status: Acute Assessment and Plan: Adynamic elevation in troponins. No chest pain. Most likely due to acute respiratory failure. (3) Hypertensive emergency Current Visit: Yes Status: Acute Assessment and Plan: Blood pressure has improved and patient has been taken off labetalol drip. Continue carvedilol, lisinopril and spironolactone. Monitor vital signs closely. Okay to transfer out of ICU to telemetry unit (4) CHF (congestive heart failure) Current Visit: Yes Status: Acute Assessment and Plan: Patient's 2-D echocardiogram did show reduced ejection fraction. Obtaining limited echo again today with Definity to more accurately evaluate for actual ejection fraction. Will need ischemic workup if this confirms his decreased ejection fraction. Continue intravenous Lasix. Patient has had good urine output. Place on fluid restriction also. Cardiology following. (5) DVT prophylaxis Current Visit: Yes Status: Acute Assessment and Plan: Continue subcutaneous heparin - Time Spent with Patient Total time spent is greater than 50% in coordination of care (as documented) at patient's floor/unit and/or counseling patient: Internal Medicine: Result - Labs CBC & Chem 7: 04/15/18 04:13 04/15/18 04:13 Labs: Short CBC 04/15/18 Range/Units 04:13 WBC 15.8 H (4.3-11.1) K/mcL Hgb 12.9 (12.9-16.9) g/dL Hct 40.6 (37.5-50.1) % Plt Count 233 (140-400) K/mcL Neutrophils # 11.7 H (1.6-8.9) K/mcL BMP 04/15/18 04:13 Sodium 141 Potassium 3.8 Chloride 105 Carbon Dioxide 29 BUN 12 Creatinine 0.81 Glucose 115 H Calcium 8.7 - ABG Interpretation ABG results: PT/INR, D-dimer D-Dimer 1127 ng/mLFEU (0-500) H 04/13/18 18:21 Consult Discharge Plan - Plan Referrals: NONE,PCP [Primary Care Provider] - (1) Acute respiratory failure Qualifiers: Respiratory failure complication: hypoxia Qualified Code(s): J96.01 - Acute respiratory failure with hypoxia (4) CHF (congestive heart failure) Qualifiers: Heart failure type: systolic Heart failure chronicity: acute on chronic Qualified Code(s): I50.23 - Acute on chronic systolic (congestive) heart failure
[2018-04-15] MEDS ORDERED: Naloxone 0.4 MG/ML INJ IVP PRN (14:51)
[2018-04-15] MEDS ORDERED: *HR* Labetalol 20 MG/4 ML SYRINGE IVP PRN (14:51)
[2018-04-15] MEDS ORDERED: Acetaminophen 325 MG TABLET PO PRN (14:51)
[2018-04-15] MEDS ORDERED: *HR* LORazepam 2 MG/ML VIAL IVP PRN (14:51)
[2018-04-15] MEDS ORDERED: Nitroglycerin 0.4 MG TAB.SUBL SL PRN (14:51)
[2018-04-16] MEDS ORDERED: Azithromycin 500 MG in D5% in Water 250 ML IVPB SCH
[2018-04-16] MEDS: *HR* Heparin 5,000 UNIT/ML VIAL SQ SCH ×3 (05:31→21:16)
[2018-04-16 07:54] LABS: Basophils # 0.1 K/mcL (0.0-0.2); Basophils % 0.6 %; Eosinophils # 0.3 K/mcL (0.0-0.6); Eosinophils % 2.5 %; Hematocrit 39.4 % (37.5-50.1); Hemoglobin 12.9 g/dL (12.9-16.9); Immature Granulocytes % 0.4 % (0-4); Lymphocytes # 1.7 K/mcL (0.6-4.6); Lymphocytes % 13.6 %; Mean Corpuscular HGB Conc 32.7 g/dL (31.6-35.5); Mean Corpuscular Hemoglobin 28.2 pg (28.0-33.3); Mean Platelet Volume 12.5 fL (9.4-12.4); Monocytes # 1.3 K/mcL (0.0-1.3); Monocytes % 10.5 %; Neutrophils # 9.1 K/mcL (1.6-8.9); Platelet Count 202 K/mcL (140-400); Red Blood Count 4.58 M/mcL (4.19-5.50); Red Cell Distribution Width 13.5 % (11.5-14.5); Segmented Neutrophils % 72.4 %
[2018-04-16 08:03] LABS: BUN/Creatinine Ratio 18 (6-26); Blood Urea Nitrogen 14 mg/dL (6-20); Carbon Dioxide 34 mEq/L (23-29); Chloride 105 mEq/L (98-107); Glucose 111 mg/dL (70-105); Osmolality,Calculated 299 (280-300); Potassium 3.9 mEq/L (3.5-5.1); Sodium 144 mEq/L (136-145); eGFR For Non-African Americans > 60 (> 60)
[2018-04-16] MEDS: Azithromycin 250 MG TABLET PO SCH (08:14)
[2018-04-16] MEDS: Spironolactone 25 MG TABLET PO SCH (08:16)
[2018-04-16] MEDS: cefTRIAXone 1,000 MG in Water for inj. (sterile) 20 ML 10 ML IVP SCH (08:17)
[2018-04-16] MEDS: Furosemide 40 MG/4 ML VIAL IVP SCH ×2 (08:17→17:26)
--- NOTE | 2018-04-16 11:56 | Internal Med Progress Note ---
Hospitalist Progress Note - Encounter Date of Encounter: 04/16/18 Time of Encounter: 11:50 - Subjective Interval History: 32 year old male with past medical history of anxiety, morbid obesity presents to emergency department with shortness of breath 2 months. Patient states the shortness of breath is worsened with exertion as well as high stress events. He states that his symptoms have been progressively worsening throughout this time period. Denies previous history of pulmonary or cardiac disease or symptoms similar to this. He does admit to recent sinus illness approximately 3 months ago which she states has never fully gone away. - Exam Vitals: Temp Pulse Resp BP Pulse Ox 98.1 F 69 22 161/101 97 04/16/18 07:45 04/16/18 08:00 04/16/18 08:00 04/16/18 08:00 04/16/18 08:00 Exam: General: Patient is alert, mild distress, oriented x 3, morbidly obese Respiratory: Good respiratory effort. Normal breath sounds. No wheezing or crackles. Cardiovascular: Regular rate and rhythm. s1 and s2 normal No clicks, rubs, gallops, or murmurs. Bilateral pitting pedal edema Abdomen: Abdomen is soft, nontender. Bowel sounds are present Musculoskeletal: Spontaneously moving all extremities Skin: warm, dry, intact. Neuro: Alert oriented x 3 normal cranial nerves, no focal deficits - Assessment and Plan (1) Acute respiratory failure Current Visit: Yes Status: Acute Assessment and Plan: Acute hypoxic respiratory failure secondary to acute systolic congestive heart failure. Continue diuresis with lasix. Patient most likely also has obstru ctive sleep apnea and would need outpatient sleep study after discharge. Wean FiO2 as tolerated. (2) CHF (congestive heart failure) Current Visit: Yes Status: Acute Assessment and Plan: Patient's 2-D echocardiogram showed EF 45 %. Continue management for CHF with lasix and beta blockers/ maged inhibitors Outpatient follow up with cardiology for ischemic workup/ repeat TTE (3) Hypertensive emergency Current Visit: Yes Status: Acute Assessment and Plan: Blood pressure has improved and patient has been taken off labetalol drip. Continue carvedilol, lisinopril and spironolactone. Follow up workup for pheochrmocytoma and metabolic causes of uncontrolled hypertension. Continue meds (4) Elevated troponin Current Visit: Yes Status: Acute Assessment and Plan: Adynamic elevation in troponins. No chest pain. Most likely due to acute respiratory failure. (5) DVT prophylaxis Current Visit: Yes Status: Acute Assessment and Plan: Continue subcutaneous heparin - Time Spent with Patient Total time spent is greater than 50% in coordination of care (as documented) at patient's floor/unit and/or counseling patient: Internal Medicine: Result - Labs CBC & Chem 7: 04/16/18 07:13 04/16/18 07:13 Labs: Short CBC 04/16/18 Range/Units 07:13 WBC 12.6 H (4.3-11.1) K/mcL Hgb 12.9 (12.9-16.9) g/dL Hct 39.4 (37.5-50.1) % Plt Count 202 (140-400) K/mcL Neutrophils # 9.1 H (1.6-8.9) K/mcL BMP 04/16/18 07:13 Sodium 144 Potassium 3.9 Chloride 105 Carbon Dioxide 34 H BUN 14 Creatinine 0.78 Glucose 111 H Calcium 9.0 - ABG Interpretation ABG results: PT/INR, D-dimer D-Dimer 1127 ng/mLFEU (0-500) H 04/13/18 18:21 - Impressions Impressions Chest X-Ray 04/13/18 15:46 IMPRESSION: Bilateral interstitial opacities and right greater than left pleural effusions may reflect pulmonary edema. Atypical infection may be considered in the correct clinical setting. D/ / 04/13/2018 16:48:29 Marko Hobbs MD / [facility] Interpreting Provider: Marko Hobbs MD Echocardiogram Limited Views 04/15/18 10:31 Impressions: LVEF 45-50%. Mild global left ventricular systolic dysfunction. Left Ventricular Wall Motion: Rest Echo Findings The apex, apical inferior, mid inferior, basal inferior, apical anterior, mid anterior, basal anterior, apical septal, mid inferior septal, basal inferior septal, apical lateral, mid anterior lateral, basal anterior lateral, mid anterior septal, mid inferior lateral, basal anterior septal and basal inferior lateral ye were hypokinetic. Findings: Study Quality * Technically adequate exam. ECG Findings * Normal sinus rhythm. Left Ventricle * LVEF 45-50%. * Mild global left ventricular systolic dysfunction. Consult Discharge Plan - Plan Referrals: NONE,PCP [Primary Care Provider] - (1) Acute respiratory failure Qualifiers: Respiratory failure complication: hypoxia Qualified Code(s): J96.01 - Acute respiratory failure with hypoxia (2) CHF (congestive heart failure) Qualifiers: Heart failure type: systolic Heart failure chronicity: acute on chronic Qualified Code(s): I50.23 - Acute on chronic systolic (congestive) heart failure
--- NOTE | 2018-04-16 13:08 | Cardiology Progress Note ---
Date of Encounter: 04/16/18 Time of Encounter: 10:00 Assessment and Plan (1) Hypertensive emergency Current Visit: Yes Status: Acute resolved, suspected secondary HTN, BP need better ctr - up coreg to 25 bid - c/w lisinopril 10, aldactone 25, lasix - add HCTZ 12.5 in the next 1-2 days - goal BP now 140/90 - pending renin activity, 24hr urine cortisol, saliva cortisol, metanephrine (2) CHF (congestive heart failure) Current Visit: Yes Status: Acute HFrEF, ADHF, EF 45-50%, etiology unclear, ddx HTN, viral, idiopathic, etc, moderate hypervolemia, improving on lasix - lasix iv goal I/O neg 1.5 L/d, till Bun/Cr uptrending - up coreg to 25 bid - c/w lisinopril 10 and aldactone 25 - keep K>4, Mg>2 - Na 2g/d, fluid restriction 1.5L/d - strict I/O, daily standing weight - outpatient PSG - Cardiology clinic f/u, repeat TTE 2-3 months - Qualifiers: Heart failure type: systolic Heart failure chronicity: acute on chronic Qualified Code(s): I50.23 - Acute on chronic systolic (congestive) heart failure (3) Elevated troponin Current Visit: Yes Status: Acute likely myocardial injury due to ADHF (4) Morbid obesity Current Visit: Yes Status: Chronic need PSG outpatient Discussion w patient/family: The assessment and plan as outlined above was discussed with the patient and/or family members who expressed understanding and agreement. All questions were answered. Thank you for involving us in the care of your patient. Please call with any questions. Subjective Principal diagnosis: chf Interval history: feels better, U/O adequate on lasix, Cr nl, NC O2 down; BP ctr insufficient on oral meds. Repeated TTE w/ definity LVEF 45-50% Objective Vital Signs, Last 4 Hours Temp Pulse Resp BP Pulse Ox 04/16/18 12:21 98.0 F 81 16 144/96 96 04/16/18 10:00 66 22 149/90 97 Other: General/Neuro: NAD, AAO, cogent, nonfocal HEENT: anicteric Neck: no JVD, no bruits Chest: CTA B/L, no W/R/C Heart: RRR, S1/S2, no S3/S4, no M/G/R Abdominal: BS +, soft, ND, NT Peripheral Pulses: radial pulse 2+ B/L, DP 1+ B/L Skin/Extremities: no cyanosis, B/L LE edema to mid shins improved Results 04/16/18 07:13 04/16/18 07:13 Lab Results 04/16/18 04/16/18 07:13 07:13 WBC 12.6 H Hgb 12.9 Hct 39.4 Plt Count 202 Sodium 144 Potassium 3.9 Chloride 105 Carbon Dioxide 34 H BUN 14 Creatinine 0.78 Glucose 111 H Calcium 9.0 - Imaging and Cardiology Echo: image reviewed Other Results: Tele reviewed Consult Discharge Plan - Plan Referrals: NONE,PCP [Primary Care Provider] -
[2018-04-17] MEDS: *HR* Heparin 5,000 UNIT/ML VIAL SQ SCH ×3 (05:31→21:56)
[2018-04-17 05:49] LABS: Basophils # 0.1 K/mcL (0.0-0.2); Basophils % 0.5 %; Eosinophils # 0.2 K/mcL (0.0-0.6); Eosinophils % 1.7 %; Hematocrit 40.7 % (37.5-50.1); Hemoglobin 12.9 g/dL (12.9-16.9); Immature Granulocytes % 0.2 % (0-4); Lymphocytes % 14.4 %; Mean Corpuscular HGB Conc 31.7 g/dL (31.6-35.5); Mean Corpuscular Volume 88.5 fL (83.0-100.0); Mean Platelet Volume 12.3 fL (9.4-12.4); Monocytes # 1.5 K/mcL (0.0-1.3); Monocytes % 10.9 %; Neutrophils # 9.9 K/mcL (1.6-8.9); Platelet Count 207 K/mcL (140-400); Red Cell Distribution Width 13.4 % (11.5-14.5); Segmented Neutrophils % 72.3 %
[2018-04-17 06:09] LABS: BUN/Creatinine Ratio 19 (6-26); Blood Urea Nitrogen 14 mg/dL (6-20); Calcium 8.4 mg/dL (8.6-10.3); Carbon Dioxide 31 mEq/L (23-29); Chloride 105 mEq/L (98-107); Glucose 108 mg/dL (70-105); Magnesium 1.8 mg/dL (1.6-2.6); Osmolality,Calculated 295 (280-300); Phosphorous 3.2 mg/dL (2.7-4.5); Potassium 3.5 mEq/L (3.5-5.1); Sodium 142 mEq/L (136-145); eGFR For Non-African Americans > 60 (> 60)
[2018-04-17] MEDS: Azithromycin 250 MG TABLET PO SCH (07:50)
[2018-04-17] MEDS: Furosemide 40 MG/4 ML VIAL IVP SCH ×2 (07:51→16:28)
[2018-04-17] MEDS: cefTRIAXone 1,000 MG in Water for inj. (sterile) 20 ML 10 ML IVP SCH (07:51)
[2018-04-17] MEDS: Spironolactone 25 MG TABLET PO SCH (07:51)
--- NOTE | 2018-04-17 08:26 | Internal Med Progress Note ---
Hospitalist Progress Note - Encounter Date of Encounter: 04/17/18 Time of Encounter: 08:30 - Subjective Interval History: 32 year old male with past medical history of anxiety, morbid obesity presents to emergency department with shortness of breath 2 months. Patient states the shortness of breath is worsened with exertion as well as high stress events. He states that his symptoms have been progressively worsening throughout this time period. Denies previous history of pulmonary or cardiac disease or symptoms similar to this. He does admit to recent sinus illness approximately 3 months ago which she states has never fully gone away. - Exam Vitals: Temp Pulse Resp BP Pulse Ox 97.9 F 75 16 153/87 99 04/17/18 08:07 04/17/18 08:07 04/17/18 08:07 04/17/18 08:07 04/17/18 08:07 Exam: General: Patient is alert, mild distress, oriented x 3, morbidly obese Respiratory: Good respiratory effort. Normal breath sounds. No wheezing or crackles. Cardiovascular: Regular rate and rhythm. s1 and s2 normal No clicks, rubs, gallops, or murmurs. Bilateral pitting pedal edema Abdomen: Abdomen is soft, nontender. Bowel sounds are present Musculoskeletal: Spontaneously moving all extremities Skin: warm, dry, intact. Neuro: Alert oriented x 3 normal cranial nerves, no focal deficits - Assessment and Plan (1) Acute respiratory failure Current Visit: Yes Status: Acute Assessment and Plan: Acute hypoxic respiratory failure secondary to acute systolic congestive heart failure. Continue diuresis with lasix. Patient most likely also has obstruc tive sleep apnea and would need outpatient sleep study after discharge. Wean off oxygen as tolerated. Patient still hypoxic this am (2) CHF (congestive heart failure) Current Visit: Yes Status: Acute Assessment and Plan: Patient's 2-D echocardiogram showed EF 45 %. Continue management for CHF with lasix and beta blockers/ maged inhibitors Outpatient follow up with cardiology for ischemic workup/ repeat TTE (3) Hypertensive emergency Current Visit: Yes Status: Acute Assessment and Plan: Blood pressure has improved and patient has been taken off labetalol drip. Continue carvedilol, lisinopril and spironolactone. Follow up workup for pheochrmocytoma and metabolic/ secondary causes of uncontrolled hypertension. Continue meds (4) Elevated troponin Current Visit: Yes Status: Acute Assessment and Plan: Adynamic elevation in troponins. No chest pain. Most likely due to acute respiratory failure. (5) DVT prophylaxis Current Visit: Yes Status: Acute Assessment and Plan: Continue subcutaneous heparin - Time Spent with Patient Total time spent is greater than 50% in coordination of care (as documented) at patient's floor/unit and/or counseling patient: Internal Medicine: Result - Labs CBC & Chem 7: 04/17/18 05:35 04/17/18 05:35 Labs: Short CBC 04/17/18 Range/Units 05:35 WBC 13.7 H (4.3-11.1) K/mcL Hgb 12.9 (12.9-16.9) g/dL Hct 40.7 (37.5-50.1) % Plt Count 207 (140-400) K/mcL Neutrophils # 9.9 H (1.6-8.9) K/mcL BMP 04/17/18 05:35 Sodium 142 Potassium 3.5 Chloride 105 Carbon Dioxide 31 H BUN 14 Creatinine 0.75 Glucose 108 H Calcium 8.4 L - ABG Interpretation ABG results: PT/INR, D-dimer D-Dimer 1127 ng/mLFEU (0-500) H 04/13/18 18:21 Consult Discharge Plan - Plan Referrals: NONE,PCP [Primary Care Provider] - (1) Acute respiratory failure Qualifiers: Respiratory failure complication: hypoxia Qualified Code(s): J96.01 - Acute respiratory failure with hypoxia (2) CHF (congestive heart failure) Qualifiers: Heart failure type: systolic Heart failure chronicity: acute on chronic Qualified Code(s): I50.23 - Acute on chronic systolic (congestive) heart failure
--- NOTE | 2018-04-17 09:25 | Electrocardiograph Report ---
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
--- NOTE | 2018-04-17 09:33 | Electrocardiograph Report ---
[address] [place], [place] [address] Test Date: 2018-04-13 Pat Name: Naresh Suárez Department: EXAM2 Room: 2N2 Gender: M [employer] In[employer]: : 1985 Requested By: Young Mercedes Order Number: [id number] Reading MD: Javier Marie Measurements Intervals [place] Rate: 113 P: 48 TN: 101 QRS: 73 QRSD: 97 T: 259 QT: 320 QTc: 439 Interpretive Statements Sinus tachycardia Repol abnrm suggests ischemia, anterolateral Electronically Signed On 04-17-2018 9:32:04 EST by Javier Marie
[2018-04-18 05:27] LABS: Urine Collection Duration NOT PROVIDED hr; Urine Collection Volume NOT PROVIDED mL
[2018-04-18] MEDS: *HR* Heparin 5,000 UNIT/ML VIAL SQ SCH ×2 (05:32→08:27)
[2018-04-18 06:40] LABS: Basophils # 0.1 K/mcL (0.0-0.2); Basophils % 0.6 %; Eosinophils # 0.3 K/mcL (0.0-0.6); Eosinophils % 2.1 %; Hematocrit 40.6 % (37.5-50.1); Hemoglobin 13.2 g/dL (12.9-16.9); Immature Granulocytes % 0.5 % (0-4); Lymphocytes # 2.1 K/mcL (0.6-4.6); Lymphocytes % 16.7 %; Mean Corpuscular HGB Conc 32.5 g/dL (31.6-35.5); Mean Corpuscular Hemoglobin 28.1 pg (28.0-33.3); Mean Corpuscular Volume 86.6 fL (83.0-100.0); Mean Platelet Volume 12.7 fL (9.4-12.4); Monocytes # 1.2 K/mcL (0.0-1.3); Monocytes % 10.1 %; Neutrophils # 8.6 K/mcL (1.6-8.9); Nucleated Red Blood Cells 0.2 /100 WBC (0); Platelet Count 191 K/mcL (140-400); Red Blood Count 4.69 M/mcL (4.19-5.50); Red Cell Distribution Width 13.4 % (11.5-14.5)
[2018-04-18 06:55] LABS: BUN/Creatinine Ratio 18 (6-26); Blood Urea Nitrogen 17 mg/dL (6-20); Calcium 9.3 mg/dL (8.6-10.3); Carbon Dioxide 33 mEq/L (23-29); Chloride 103 mEq/L (98-107); Glucose 116 mg/dL (70-105); Magnesium 2.1 mg/dL (1.6-2.6); Osmolality,Calculated 293 (280-300); Phosphorous 3.8 mg/dL (2.7-4.5); Potassium 3.8 mEq/L (3.5-5.1); Sodium 140 mEq/L (136-145); eGFR For Non-African Americans > 60 (> 60)
[2018-04-18 08:06] VITALS: BP 159/95
[2018-04-18] MEDS: Azithromycin 250 MG TABLET PO SCH (08:20)
[2018-04-18] MEDS: Spironolactone 25 MG TABLET PO SCH (08:20)
[2018-04-18] MEDS: Furosemide 40 MG/4 ML VIAL IVP SCH (08:20)
[2018-04-18] MEDS: cefTRIAXone 1,000 MG in Water for inj. (sterile) 20 ML 10 ML IVP SCH (08:21)
--- NOTE | 2018-04-18 08:51 | Discharge Summary ---
Orders not resulted at time of discharge: Pending orders 04/19/18 04:00 Basic Metabolic Panel AM 0400 CBC [Complete Blood Count] [HEME] AM 0400 Magnesium AM 0400 Phosphorous AM 0400 04/20/18 04:00 Basic Metabolic Panel AM 0400 CBC [Complete Blood Count] [HEME] AM 0400 Magnesium AM 0400 Phosphorous AM 0400 04/21/18 04:00 Basic Metabolic Panel AM 0400 CBC [Complete Blood Count] [HEME] AM 0400 Magnesium AM 0400 Phosphorous AM 0400 04/22/18 04:00 Basic Metabolic Panel AM 0400 CBC [Complete Blood Count] [HEME] AM 0400 Magnesium AM 0400 Phosphorous AM 0400 04/13/18 19:36 Culture,Blood [BC] Stat 04/14/18 21:26 Cortisol Fr,Ur Random or 24hr Routine 04/14/18 23:27 Cortisol,Saliva Routine 04/15/18 07:40 Metanephrines, Plasma (Free) AM 0400 Date of Encounter: 04/18/18 Time of Encounter: 08:50 - Discharge Diagnosis (1) Acute respiratory failure Priority: Primary Status: Acute Assessment and Plan: 32 year old male with past medical history of anxiety, morbid obesity presents to emergency department with shortness of breath 2 months. Patient states the shortness of breath is worsened with exertion as well as high stress events. He states that his symptoms have been progressively worsening throughout this time period. Denies previous history of pulmonary or cardiac disease or symptoms similar to this. He does admit to recent sinus illness approximately 3 months ago which she states has never fully gone away. Denies any symptoms of fevers, chills, nausea, vomiting, chest pains but does admit to symptoms of nonproductive cough, orthopnea, lower extremity swelling, PND. He was assessed with acute hypoxic respiratory failure secondary to acute systolic congestive heart failure and hypertensive emergency on admission. He was started on a labetalol drip and diuresis with lasix IV with an improvement. he had an echo done which showed a depressed EF of 45-50%. He was seen by cardiology who recommend a repeat echo as an outpatient after which they will consider an ischemic workup based on echo results for his new cardiomyopathy. His hypertension was alsoworked up for secondary causes including Conn Syndrome and pheochromocytoma and results are pending. Renin activity however came back low. He will follow up with cardiology/ PCP as an outpatient. His blood pressure and heart failure symptoms were controlled with coreg, lisinopril, spironolactone and lasix and was discharged in a stable condition on these meds. 35 minutes was spent discharging this patient Qualifiers: Respiratory failure complication: hypoxia Qualified Code(s): J96.01 - Acute respiratory failure with hypoxia (2) CHF (congestive heart failure) Priority: Primary Status: Acute Qualifiers: Heart failure type: systolic Heart failure chronicity: acute on chronic Qualified Code(s): I50.23 - Acute on chronic systolic (congestive) heart failure (3) Hypertensive emergency Priority: Primary Status: Acute (4) Elevated troponin Priority: Primary Status: Acute (5) DVT prophylaxis Priority: Primary Status: Acute Hospital course: Mr. Suárez is a 32 year old male - Time Spent with Patient Total time spent providing and/or coordinating discharge services: - Discharge Medications Prescriptions: Carvedilol [Coreg] 25 mg PO BIDWM 30 Days #60 tablet Furosemide [Lasix] 40 mg PO BID #60 tab Lisinopril [Zestril] 10 mg PO DAILY #30 tablet Spironolactone [Aldactone] 25 mg PO DAILY #30 tablet Home Medications: Carvedilol [Coreg] 25 mg PO BIDWM 30 Days #60 tablet 04/18/18 [Rx] Furosemide [Lasix] 40 mg PO BID #60 tab 04/18/18 [Rx] Lisinopril [Zestril] 10 mg PO DAILY #30 tablet 04/18/18 [Rx] Spironolactone [Aldactone] 25 mg PO DAILY #30 tablet 04/18/18 [Rx] Allergies/Adverse Reactions: Allergy/AdvReac Type Severity Reaction Status Date / Time No Known Allergies Allergy Verified 04/13/18 15:39 Date of admission: 04/14/18 08:25 Primary care physician: PCP NONE Consults: 04/17/18 15:39 Consult to Physical Therapy [CONS] Routine Comment: Evaluate, develop and implement POC Reason for Consult: weakness Does patient have active BEDREST order?: No Is patient medically & hemodynamically stable?: Yes Patient assessed for mobility or mobilized this visit?: No 04/13/18 23:31 Consult to Cardiology [CONS] Routine Comment: Consulting Provider: Cardiology Dionne Reason for Consult: Acute pulmonary edema Call Completed: Yes - Constitutional Vitals: Temp Pulse Resp BP Pulse Ox 98.2 F 63 14 159/95 98 04/18/18 08:05 04/18/18 08:05 04/18/18 08:05 04/18/18 08:05 04/18/18 08:05 Exam: General: Patient is alert, mild distress, oriented x 3, morbidly obese Respiratory: Good respiratory effort. Normal breath sounds. No wheezing or crackles. Cardiovascular: Regular rate and rhythm. s1 and s2 normal No clicks, rubs, gallops, or murmurs. Bilateral pitting pedal edema Abdomen: Abdomen is soft, nontender. Bowel sounds are present Musculoskeletal: Spontaneously moving all extremities Skin: warm, dry, intact. Neuro: Alert oriented x 3 normal cranial nerves, no focal deficits - Patient Status Disposition: Home, Self-Care Condition: Fair - Ambulatory Orders Ambulatory Orders: Basic Metabolic Panel [CHEM] Time Frame: 7 Days, Facility: [facility], Location: [facility] - Discharge Instructions Instructions: Heart Failure (DC), Acute Respiratory Distress Syndrome (DC), Chronic Hypertension (DC), Low Sodium Diet (DC), Fluid Restriction (DC), Anxiety (DC) Follow Up With: Jamie Pena MD [Partnered Physician] - 05/02/18 3:45 pm (due to physician full schedule the earliest time for this patient is 05/02/18 ) Angela Sifuentes MD [Non-Partnered Physician] - (Office to call with appointment. Call office Saturday 04/22 to confirm)
[2018-04-18 15:59] LABS: Metanephrine, Plasma 0.27 nmol/L (0.00-0.49)
== END 2018-04-18 11:49 | disposition home or self-care (01) | DRG 291 ==
LOC: EMEROOARM 15:30 → ICNU 15:30 → 2NNU 04-14 18:47 → ICNU 04-14 18:50 → 2NENU 04-16 12:20
PROVIDERS: ADMIT Internal Medicine Nephrology; ATTEND Internal Medicine